=== PATIENT | female | born 1985 | race Caucasian/White ===

== ENCOUNTER → 2018-01-20 | Outpatient (CLI) | payer BC ==
[2018-01-20 07:44] LABS: Basophils # (auto) 0 uL; Basophils % (auto) 0.3 % (0.0-2.0); Eosinophils # (auto) 0.6 uL; Eosinophils % (auto) 6.3 % (0.0-7.0); Hematocrit 34.7 % (36.0-46.0); Hemoglobin 11.8 g/dL (12.2-16.2); Lymphocytes # (auto) 1.8 uL; Lymphocytes % (auto) 18.2 % (10.0-50.0); Mean Corpuscular Hemoglobin 30.9 pg (28.0-32.0); Mean Corpuscular Volume 90.9 fL (80.0-100.0); Monocytes # (auto) 0.7 uL; Monocytes % (auto) 6.8 % (0.0-12.0); Neutrophils # (auto) 6.6 uL; Neutrophils % (auto) 68.4 % (37.0-80.0); Platelet Count (auto) 231 10^3/uL (140-450); Red Blood Cells 3.82 10^6/uL (4.0-5.20); Red Cell Distribution Width 13.1 % (11.8-14.3); White Blood Cell 9.7 10^3/uL (4.4-10.8)
== END | disposition home or self-care (01) ==
LOC: LAB 07:20
PROVIDERS: ATTEND Specialist
DX: O99.810 Abnormal glucose complicating pregnancy (principal); Z3A.00 Weeks of gestation of pregnancy not specified
CPT/HCPCS: 36415; 82951; 85025

== ENCOUNTER → 2018-03-23 | Outpatient (CLI) | payer BC ==
[2018-03-23 10:11] LABS: Basophils # (auto) 0 uL; Basophils % (auto) 0.3 % (0.0-2.0); Eosinophils # (auto) 0.6 uL; Eosinophils % (auto) 5.1 % (0.0-7.0); Hemoglobin 11.3 g/dL (12.2-16.2); Lymphocytes # (auto) 1.8 uL; Lymphocytes % (auto) 16.3 % (10.0-50.0); Mean Corpuscular Hemoglobin 28.7 pg (28.0-32.0); Mean Corpuscular Hgb Conc. 33.1 g/dL (32.0-36.0); Mean Corpuscular Volume 86.7 fL (80.0-100.0); Monocytes # (auto) 0.8 uL; Neutrophils % (auto) 71.3 % (37.0-80.0); Platelet Count (auto) 238 10^3/uL (140-450); Red Blood Cells 3.92 10^6/uL (4.0-5.20); Red Cell Distribution Width 12.9 % (11.8-14.3); White Blood Cell 11.2 10^3/uL (4.4-10.8)
[2018-03-24 05:06] LABS: RPR Non Reactive (Non Reactive)
== END | disposition home or self-care (01) ==
LOC: LAB 09:28
PROVIDERS: ATTEND Specialist
DX: O23.599 Infection of other part of genital tract in pregnancy, unspecified trimester (principal); Z3A.00 Weeks of gestation of pregnancy not specified
CPT/HCPCS: 36415; 85025; 86592; 87081

== ENCOUNTER 2018-04-26 07:00 | Inpatient (IN) | payer BC ==
[~2018-04-26] VITALS: Ht 165.1 cm; Wt 90.7 kg
[2018-04-26] MEDS ORDERED: LACTATED RINGER'S 1,000 ML IV SCH (07:34)
[2018-04-26] MEDS ORDERED: LACT. RINGERS/OXYTOCIN 20UNITS 1,000 ML IV SCH (07:34)
[2018-04-26] MEDS ORDERED: WITCH HAZEL-GLYCERIN PAD TOP PRN (07:45)
[2018-04-26] MEDS ORDERED: PHISODERM TOP SOLN 240ML BTL TOP PRN (07:45)
[2018-04-26] MEDS ORDERED: DERMOPLAST 60ML BOTTLE TOP PRN (07:45)
[2018-04-26] MEDS ORDERED: LIDOCAINE 2% (LOCAL ANESTH.) PF 5ml SDV ID ONE (07:45)
[2018-04-26 08:22] LABS: Basophils # (auto) 0 uL; Basophils % (auto) 0.1 % (0.0-2.0); Eosinophils # (auto) 0.4 uL; Eosinophils % (auto) 4.8 % (0.0-7.0); Hematocrit 36.7 % (36.0-46.0); Hemoglobin 11.9 g/dL (12.2-16.2); Lymphocytes # (auto) 1.5 uL; Mean Corpuscular Hemoglobin 27.9 pg (28.0-32.0); Mean Corpuscular Hgb Conc. 32.6 g/dL (32.0-36.0); Mean Corpuscular Volume 85.6 fL (80.0-100.0); Monocytes # (auto) 0.6 uL; Monocytes % (auto) 6.5 % (0.0-12.0); Neutrophils # (auto) 6.2 uL; Neutrophils % (auto) 71.6 % (37.0-80.0); Nucleated Red Blood Cells % 0.1 %; Platelet Count (auto) 241 10^3/uL (140-450); Red Blood Cells 4.28 10^6/uL (4.0-5.20); Red Cell Distribution Width 14.1 % (11.8-14.3); White Blood Cell 8.7 10^3/uL (4.4-10.8)
[2018-04-26 08:27] LABS: Urine Bacteria NONE SEEN /hpf (None Seen); Urine Blood Negative /uL (Negative); Urine Mucus FEW (None Seen); Urine Specific Gravity 1.026 (1.001-1.035); Urine WBC 2 /hpf (0 - 5)
[2018-04-26 08:37] LABS: INR 0.85 (0.9-1.15); Partial Thromboplastin Time 25.9 sec (23.78-33.04); Prothrombin Time 9.2 sec (9.27-12.13)
[2018-04-26 08:38] LABS: Albumin 2.5 g/dL (3.4-5.0); BUN/Creatinine Ratio 12.9; Calcium 8.9 mg/dL (8.5-10.1); Potassium 3.8 mmol/L (3.5-5.1)
[2018-04-26 08:40] LABS: Bilirubin, Total 0.3 mg/dL (0.2-1.0); Total Protein 6.8 g/dL (6.4-8.2)
[2018-04-26] MEDS: NALBUPHINE HCL 10 MG/1ml INJECTION IV PRN ×2 (14:43→18:02)
[2018-04-26 16:18] LABS: Basophils # (auto) 0 uL; Basophils % (auto) 0.4 % (0.0-2.0); Eosinophils # (auto) 0.4 uL; Eosinophils % (auto) 3.6 % (0.0-7.0); Hematocrit 35.5 % (36.0-46.0); Hemoglobin 11.5 g/dL (12.2-16.2); Lymphocytes # (auto) 1.6 uL; Lymphocytes % (auto) 15.6 % (10.0-50.0); Mean Corpuscular Hgb Conc. 32.4 g/dL (32.0-36.0); Mean Corpuscular Volume 86.4 fL (80.0-100.0); Monocytes # (auto) 0.8 uL; Monocytes % (auto) 7.8 % (0.0-12.0); Neutrophils # (auto) 7.6 uL; Neutrophils % (auto) 72.6 % (37.0-80.0); Platelet Count (auto) 233 10^3/uL (140-450); Red Blood Cells 4.11 10^6/uL (4.0-5.20); White Blood Cell 10.5 10^3/uL (4.4-10.8)
[2018-04-26 16:31] LABS: INR 0.84 (0.9-1.15); Partial Thromboplastin Time 25.8 sec (23.78-33.04); Prothrombin Time 9.1 sec (9.27-12.13)
[2018-04-26 16:34] LABS: Albumin 2.5 g/dL (3.4-5.0); Calcium 8.6 mg/dL (8.5-10.1); Potassium 3.8 mmol/L (3.5-5.1); Uric Acid 5.7 mg/dL (2.6-6.0)
[2018-04-26 16:38] LABS: Bilirubin, Total 0.6 mg/dL (0.2-1.0); Total Protein 6.5 g/dL (6.4-8.2)
[2018-04-26] MEDS ORDERED: TERBUTALINE SULFATE 1 MG/ML 1ML VIAL SC ONE (19:30)
[2018-04-26] MEDS ORDERED: PREN-96 PO (20:37)
[2018-04-26] MEDS ORDERED: ALBUAER3 IN (20:37)
[2018-04-26] MEDS ORDERED: BUTORPHANOL TARTRATE 2 MG/1 ML VIAL IV PRN (23:00)
[2018-04-27] MEDS ORDERED: LACT. RINGERS/OXYTOCIN 20UNITS 1,000 ML IV SCH (00:38)
[2018-04-27] MEDS ORDERED: ePHEDrine SULFATE 50 MG/ML AMP IV ONE ×2 (00:45→15:15)
[2018-04-27] MEDS ORDERED: NALOXONE HCL 0.4 MG/ML VIAL IV ONE ×2 (00:45→15:15)
[2018-04-27] MEDS ORDERED: fentaNYL W ROPIVACAINE 150 ML EPI SCH (00:45)
[2018-04-27] MEDS ORDERED: LACTATED RINGER'S 1,000 ML IV ONE (02:00)
[2018-04-27] MEDS: LACTATED RINGER'S 1,000 ML IV SCH (02:00)
[2018-04-27] MEDS ORDERED: LIDOCAINE 2% (LOCAL ANESTH.) PF 5ml SDV ID ONE (06:15)
[2018-04-27] MEDS ORDERED: LACTATED RINGER'S 1,000 ML IV SCH ×2 (06:30→18:30)
[2018-04-27] MEDS: ACETAMINOPHEN 325 MG TAB PO PRN ×2 (12:42→16:20)
[2018-04-27] MEDS: CLINDAMYCIN 600MG IV 50 ML IV SCH ×2 (12:43→19:02)
[2018-04-27 13:06] LABS: Rubella Antibodies, IgG 2.79 index (Immune >0.99)
[2018-04-27 13:11] LABS: Basophils # (auto) 0 uL; Basophils % (auto) 0.2 % (0.0-2.0); Eosinophils # (auto) 0.1 uL; Eosinophils % (auto) 1.1 % (0.0-7.0); Hematocrit 34.6 % (36.0-46.0); Hemoglobin 11.2 g/dL (12.2-16.2); Lymphocytes # (auto) 1.2 uL; Lymphocytes % (auto) 9.5 % (10.0-50.0); Mean Corpuscular Hemoglobin 27.8 pg (28.0-32.0); Mean Corpuscular Hgb Conc. 32.4 g/dL (32.0-36.0); Mean Corpuscular Volume 85.7 fL (80.0-100.0); Monocytes # (auto) 0.9 uL; Monocytes % (auto) 7.4 % (0.0-12.0); Neutrophils # (auto) 10.2 uL; Neutrophils % (auto) 81.8 % (37.0-80.0); Platelet Count (auto) 195 10^3/uL (140-450); Red Blood Cells 4.04 10^6/uL (4.0-5.20); Red Cell Distribution Width 14.5 % (11.8-14.3); White Blood Cell 12.4 10^3/uL (4.4-10.8)
[2018-04-27 13:27] LABS: INR 0.85 (0.9-1.15); Partial Thromboplastin Time 25.4 sec (23.78-33.04); Prothrombin Time 9.2 sec (9.27-12.13)
[2018-04-27 13:31] LABS: Albumin 2.3 g/dL (3.4-5.0); BUN/Creatinine Ratio 14.5; Calcium 8.7 mg/dL (8.5-10.1); Potassium 4.5 mmol/L (3.5-5.1); Uric Acid 6.3 mg/dL (2.6-6.0)
[2018-04-27 13:34] LABS: Bilirubin, Total 0.5 mg/dL (0.2-1.0); Total Protein 6.1 g/dL (6.4-8.2)
[2018-04-27] MEDS ORDERED: LIDOCAINE HCL 2 %PF INJ 10ML AMP IJ ONE ×2 (14:52→19:42)
[2018-04-27] MEDS ORDERED: fentaNYL CITRATE 100 MCG/2 ML VL ONE ×4 (15:07→21:35)
[2018-04-27] MEDS ORDERED: fentaNYL CITRATE 100 MCG/2 ML VL IV ONE (15:15)
[2018-04-27] MEDS ORDERED: GENTAMICIN SULF 80 MG/2 ML VIAL ONE (20:26)
[2018-04-27] MEDS ORDERED: SUCCINYLCHOLINE CHLORIDE 20 MG/ML 10ML VIAL IV ONE (20:35)
[2018-04-27] MEDS ORDERED: MIDAZOLAM HCL 1MG/1ML-2 ML VIAL ONE (21:11)
[2018-04-27] MEDS ORDERED: ONDANSETRON HCL 4 MG/2 ML VIAL IV ONE (22:00)
[2018-04-27] MEDS ORDERED: CLINDAMYCIN 900MG IV 50 ML IV ONE (22:00)
[2018-04-27] MEDS ORDERED: ONDANSETRON HCL 4 MG/2 ML VIAL IV PRN (22:00)
[2018-04-27] MEDS ORDERED: HYDROmorphone HCL 2 MG/ML VL IV PRN (22:00)
[2018-04-27] MEDS ORDERED: hydrALAZINE HCL 20 MG/ML VL IV PRN (22:00)
[2018-04-27] MEDS ORDERED: ePHEDrine SULFATE 50 MG/ML AMP IV PRN (22:00)
[2018-04-27] MEDS: HYDROmorphone HCL 2 MG/ML VL IV PRN ×2 (22:09→22:19)
[2018-04-27] MEDS ORDERED: HYDROmorphone HCL 2 MG/ML VL ONE (22:09)
[2018-04-27] MEDS ORDERED: hydrALAZINE HCL 20 MG/ML VL ONE (22:16)
[2018-04-27] MEDS ORDERED: hydrALAZINE HCL 20 MG/ML VL IV ONE (22:16)
[2018-04-27] MEDS ORDERED: HYDROmorphone HCL 2 MG/ML VL IV ONE (22:29)
[2018-04-27 22:51] LABS: Basophils # (auto) 0 uL; Eosinophils # (auto) 0 uL; Hematocrit 31.8 % (36.0-46.0); Hemoglobin 10.3 g/dL (12.2-16.2); Lymphocytes # (auto) 0.7 uL; Lymphocytes % (auto) 3.5 % (10.0-50.0); Mean Corpuscular Hemoglobin 28.1 pg (28.0-32.0); Mean Corpuscular Hgb Conc. 32.5 g/dL (32.0-36.0); Mean Corpuscular Volume 86.4 fL (80.0-100.0); Monocytes # (auto) 1.2 uL; Monocytes % (auto) 5.6 % (0.0-12.0); Neutrophils # (auto) 19.5 uL; Neutrophils % (auto) 90.9 % (37.0-80.0); Platelet Count (auto) 207 10^3/uL (140-450); Red Blood Cells 3.68 10^6/uL (4.0-5.20); Red Cell Distribution Width 14.2 % (11.8-14.3); White Blood Cell 21.5 10^3/uL (4.4-10.8)
[2018-04-27 23:00] VITALS: BP 133/87
[2018-04-27 23:13] LABS: Calcium 8.5 mg/dL (8.5-10.1); Potassium 3.9 mmol/L (3.5-5.1); Uric Acid 6.9 mg/dL (2.6-6.0)
[2018-04-27 23:15] LABS: BUN/Creatinine Ratio 12.4; Bilirubin, Total 0.6 mg/dL (0.2-1.0); INR 0.9 (0.9-1.15); Partial Thromboplastin Time 27.5 sec (23.78-33.04); Prothrombin Time 9.7 sec (9.27-12.13); Total Protein 5.4 g/dL (6.4-8.2)
[2018-04-27 23:20] VITALS: BP 153/70
[2018-04-27 23:36] VITALS: BP 149/71
[2018-04-27] MEDS: KETOROLAC TROMETH 30 MG/ML 1ML VIAL IV SCH (23:43)
[2018-04-28] VITALS (13 sets, daily range): BP systolic 96–149; BP diastolic 56–79
[2018-04-28] MEDS: CLINDAMYCIN 900MG IV 50 ML IV SCH ×3 (02:55→19:39)
[2018-04-28] MEDS ORDERED: CLINDAMYCIN 600MG IV 50 ML IV SCH ×2 (03:00)
[2018-04-28] MEDS ORDERED: GENTAMICIN SULF 80 MG/2 ML VIAL ONE (04:42)
[2018-04-28] MEDS: KETOROLAC TROMETH 30 MG/ML 1ML VIAL IV SCH (05:30)
[2018-04-28] MEDS: GENTAMICIN SULFATE 80 MG in D5W 5% 100 ML IV SCH ×3 (05:30→22:31)
[2018-04-28] MEDS: LACTATED RINGER'S 1,000 ML IV SCH ×3 (05:58→21:58)
[2018-04-28 07:20] LABS: Basophils # (auto) 0 uL; Basophils % (auto) 0.1 % (0.0-2.0); Eosinophils # (auto) 0.1 uL; Eosinophils % (auto) 0.3 % (0.0-7.0); Hematocrit 26.6 % (36.0-46.0); Hemoglobin 8.9 g/dL (12.2-16.2); Lymphocytes # (auto) 1.7 uL; Lymphocytes % (auto) 9.3 % (10.0-50.0); Mean Corpuscular Hemoglobin 28.8 pg (28.0-32.0); Mean Corpuscular Hgb Conc. 33.3 g/dL (32.0-36.0); Mean Corpuscular Volume 86.5 fL (80.0-100.0); Monocytes # (auto) 1.2 uL; Monocytes % (auto) 6.4 % (0.0-12.0); Neutrophils # (auto) 15.4 uL; Neutrophils % (auto) 83.9 % (37.0-80.0); Nucleated Red Blood Cells % 0.1 %; Platelet Count (auto) 201 10^3/uL (140-450); Red Blood Cells 3.08 10^6/uL (4.0-5.20); Red Cell Distribution Width 14.2 % (11.8-14.3); White Blood Cell 18.4 10^3/uL (4.4-10.8)
[2018-04-28 07:36] LABS: Calcium 7.7 mg/dL (8.5-10.1); Potassium 3.9 mmol/L (3.5-5.1)
[2018-04-28 07:43] LABS: Albumin 1.7 g/dL (3.4-5.0); BUN/Creatinine Ratio 11.5; Bilirubin, Total 0.5 mg/dL (0.2-1.0); Total Protein 4.7 g/dL (6.4-8.2)
[2018-04-28] MEDS ORDERED: SIMETHICONE 80 MG CHEWABLE TABLET PO PRN (10:00)
[2018-04-28] MEDS ORDERED: HYDROcodone-ACET 5/325MG TAB PO PRN (10:00)
[2018-04-28] MEDS: DOCUSATE SOD 100 MG CAP PO SCH ×2 (10:35→22:31)
[2018-04-28] MEDS: IBUPROFEN 800 MG TAB PO PRN ×2 (10:35→20:17)
[2018-04-28] MEDS: HYDROcodone-ACET 5/325MG TAB PO PRN ×2 (16:59→22:31)
[2018-04-29] MEDS: HYDROcodone-ACET 5/325MG TAB PO PRN ×5 (02:48→23:16)
[2018-04-29] MEDS: CLINDAMYCIN 900MG IV 50 ML IV SCH (02:48)
[2018-04-29 03:00] VITALS: BP 95/65
[2018-04-29] MEDS: IBUPROFEN 800 MG TAB PO PRN ×3 (04:39→21:05)
[2018-04-29] MEDS: GENTAMICIN SULFATE 80 MG in D5W 5% 100 ML IV SCH (06:10)
[2018-04-29 07:00] VITALS: BP 95/62
[2018-04-29 11:26] VITALS: BP 107/57
[2018-04-29] MEDS: DOCUSATE SOD 100 MG CAP PO SCH ×2 (12:34→21:56)
[2018-04-29 15:00] VITALS: BP 121/81
[2018-04-29] MEDS ORDERED: BISACODYL 10 MG RECT SUPP PR PRN (21:45)
[2018-04-29 23:00] VITALS: BP 122/79
[2018-04-30 03:00] VITALS: BP 122/70
[2018-04-30] MEDS: HYDROcodone-ACET 5/325MG TAB PO PRN (03:54)
[2018-04-30] MEDS: IBUPROFEN 800 MG TAB PO PRN (05:14)
[2018-04-30 06:40] VITALS: BP 121/76
== END 2018-04-30 08:30 | disposition home or self-care (01) | DRG 788 ==
LOC: LDRP 07:00
PROVIDERS: ADMIT Specialist; ATTEND Specialist
PROC: 3E033VJ Introduction of Other Hormone into Peripheral Vein, Percutaneous Approach (ICD-10-PCS; 2018-04-27)
PROC: 10D00Z1 Extraction of Products of Conception, Low, Open Approach (ICD-10-PCS; principal; 2018-04-27 20:35)
DX: O69.81X0 Labor and delivery complicated by cord around neck, without compression, not applicable or unspecified (principal); O76 Abnormality in fetal heart rate and rhythm complicating labor and delivery; O64.8XX0 Obstructed labor due to other malposition and malpresentation, not applicable or unspecified; O63.1 Prolonged second stage (of labor); Z37.0 Single live birth; Z3A.40 40 weeks gestation of pregnancy
CPT/HCPCS: 36415; 51702; 59025; 62282; 80053; 81001; 81002; 84550; 85025; 85610; 85730; 86762; 86850; 86900; 86901; 94762; 96365; 96366; 96372; 96374; A6257; G0378; J0330; J1885; J2001; J2250; J2590; J3010; J3490; J7060